=== PATIENT | male | born 1995 | race African-American/Black ===

== ENCOUNTER 2025-06-27 22:27 | Emergency (ER) | payer SELFPAY ==
[2025-06-28] MEDS ORDERED: Ketorolac Tromethamine 30 MG (1 mL) VIAL ONE (00:36)
== END 2025-06-28 02:07 | disposition home or self-care (01) ==
LOC: CSHERS 22:27
DX: S52.602A Unspecified fracture of lower end of left ulna, initial encounter for closed fracture (principal); Z55.6 Problems related to health literacy; Y09 Assault by unspecified means
CPT/HCPCS: 25535; 96374; J1885